=== PATIENT | female | born 1965 | race Caucasian/White ===

== ENCOUNTER → 2021-04-24 09:07 | Outpatient (BNVA) | payer OTHER, SELFPAY | PROVIDERS: PCP Internal Medicine; Visit Provider Surgery | DX: E66.9 Obesity, unspecified (principal); K91.2 Postsurgical malabsorption, not elsewhere classified; Z90.3 Acquired absence of stomach [part of]; Z68.32 Body mass index [BMI] 32.0-32.9, adult | CPT/HCPCS: 99202 ==

== ENCOUNTER 2021-07-10 11:57 | Outpatient (REF) | payer OTHER, SELFPAY ==
[2021-07-10 13:14] LABS: MANUAL DIFF FLAG NO
[2021-07-10 13:25] LABS: Basophils Percent Auto 0.3 % (0-2); Eosinophils Absolute Auto 0.2 X10*3/uL (0.0-0.4); Eosinophils Percent Auto 2.3 % (0-4); Hematocrit 41.2 % (37-47); Hemoglobin 13.8 g/dl (12.0-16.0); Imm Gran Abs Auto 0.03 X10*3/uL (0.00-0.03); Imm Gran Pct Auto 0.4 % (0.0-0.4); Lymphocytes Absolute Auto 1.8 X10*3/uL (1.2-4.9); Lymphocytes Percent Auto 24.4 % (20-40); Mean Corpuscular HGB Conc 33.5 g/dl (31.0-35.0); Mean Corpuscular Hemoglobin 29.5 pg (27.0-33.0); Mean Platelet Volume 8.8 fL (9.4-12.3); Monocytes Absolute Auto 0.5 X10*3/uL (0.1-1.2); Monocytes Percent Auto 6.3 % (2-11); Neutrophils Absolute Auto 4.9 X10*3/uL (2.0-8.3); Neutrophils Percent Auto 66.3 % (45-73); Platelet Count 185 X10*3/uL (160-400); Red Blood Count 4.68 X10*6/uL (4.20-5.50); Red Cell Distribution Width 12.6 % (11.0-16.0); White Blood Count 7.4 X10*3/uL (4.8-10.8)
[2021-07-10 13:52] LABS: Alanine Aminotransferase 17 U/L (0-31); Albumin Level 4.1 g/dL (3.5-5.0); Alkaline Phosphatase 114 U/L (39-117); Anion Gap 12 (12-20); Aspartate Amino Transferase 25 U/L (5-31); Bilirubin Total 1.6 mg/dL (0.0-1.0); Blood Urea Nitrogen 15 mg/dL (9-16); C Reactive Protein 0.51 mg/dL (< or = 0.50); Calcium 9.4 mg/dL (8.4-10.2); Carbon Dioxide 29 mmol/L (22-29); Chloride 104 mmol/L (96-108); Cholesterol 184 mg/dL; Estimated Glomerular Filt Rate > 60; Glucose Fasting 114 mg/dL (60-99); HDL Cholesterol 54 mg/dL; Iron 141 mcg/dL (30-160); LDL Cholesterol Calculated 119 mg/dl; Percent Iron Saturation 36 % (15-50); Potassium 4.1 mmol/L (3.3-5.1); Sodium 141 mmol/L (135-145); Total Iron Binding Capacity 387 mcg/dL (228-428); Total Protein 6.7 g/dL (6.5-8.0); Triglycerides 58 mg/dL; Unsaturated Iron Binding 246 ug/dL
[2021-07-10 14:09] LABS: Estimated Average Glucose 151 mg/dL; Hemoglobin A1c % 6.9 %
[2021-07-10 14:13] LABS: Thyroid Stimulating Hormone 0.87 uIU/mL (0.32-4.0)
[2021-07-10 14:18] LABS: Vitamin B12 256 pg/mL (200-900)
[2021-07-13 16:40] LABS: Zinc 66 mcg/dL (60-130)
[2021-07-14 00:51] LABS: Vitamin A 26 mcg/dL (38-98)
[2021-07-18 11:07] LABS: Vitamin B1 9 nmol/L (8-30)
== END 2021-07-10 11:58 | disposition home or self-care (01) ==
LOC: HO.LAB 11:57
PROVIDERS: Absent Provider Surgery; PCP Internal Medicine; Referring Provider Internal Medicine; Visit Provider Physician Assistant Surgical
DX: Z01.818 Encounter for other preprocedural examination (principal); E66.9 Obesity, unspecified; K91.2 Postsurgical malabsorption, not elsewhere classified; Z79.899 Other long term (current) drug therapy; Z90.3 Acquired absence of stomach [part of]; Z71.3 Dietary counseling and surveillance
CPT/HCPCS: 36415; 80053; 80061; 82306; 82607; 83036; 83540; 84425; 84443; 84590; 84630; 85025; 86140; 99212

== ENCOUNTER 2021-10-24 08:50 | Outpatient (REF) | payer OTHER, SELFPAY ==
[2021-10-24 12:33] LABS: Vitamin D 25-OH Total 22.4 ng/mL (>30)
[2021-10-24 23:32] LABS: Folate 11.8 ng/mL (> or = 4.0); Vitamin B12 380 pg/mL (200-900)
[2021-10-29 15:47] LABS: Vitamin A 30 mcg/dL (38-98)
[2021-10-30 11:52] LABS: Vitamin B1 14 nmol/L (8-30)
== END 2021-10-24 08:51 | disposition home or self-care (01) ==
LOC: HO.LAB 08:50
PROVIDERS: PCP Internal Medicine; Visit Provider Physician Assistant Surgical
DX: K91.2 Postsurgical malabsorption, not elsewhere classified (principal); E66.9 Obesity, unspecified; E50.9 Vitamin A deficiency, unspecified; Z90.3 Acquired absence of stomach [part of]; Z71.3 Dietary counseling and surveillance
CPT/HCPCS: 36415; 82306; 82607; 82746; 84425; 84590; 99212

== ENCOUNTER 2025-09-02 14:41 | Outpatient (REF) | payer OTHER, SELFPAY ==
--- NOTE | 2025-09-02 14:45 | EMG_ITS ---
Chief complaint: Right worse than left, chronic pain and numbness, 2nd-5th digits Reason for referral: Evaluate for ulnar neuropathy, Carpal Tunnel Syndrome or radiculopathy Referred by: Radha CORNEJO Procedure done: Bilateral upper extremities NCS/EMG Precautions and/or limitations: None The limb temperature was monitored continuously and remained between 32-36 degrees C during the performance of the NCS. Ulnar motor NCS was performed with moderate elbow flexion between 70-90 degrees, with across-elbow distance of 10 cm. Nerve Conduction Studies Anti Sensory Summary Table ?Stim Site NR Onset (ms) Norm Onset (ms) Peak (ms) Norm Peak (ms) O-P Amp (?V) Norm O-P Amp Site1 Site2 Delta-0 (ms) Dist (cm) Thad (m/s) Norm Thad (m/s) Left Median Anti Sensory (2nd Digit) Wrist ? 3.2 4.3 <3.6 34.2 >10 Wrist 2nd Digit 3.2 14.0 44 Right Median Anti Sensory (2nd Digit) Wrist ? 3.1 4.0 <3.6 35.8 >10 Wrist 2nd Digit 3.1 14.0 45 Right Radial Anti Sensory (Thumb) Forearm ? 2.0 2.7 <3.1 18.0 Forearm Thumb 2.0 0.0 Left Ulnar Anti Sensory (5th Digit) Wrist ? 2.8 3.8 <3.7 10.7 >15.0 Wrist 5th Digit 2.8 14.0 50 Right Ulnar Anti Sensory (5th Digit) Wrist ? 3.2 3.8 <3.7 5.4 >15.0 Wrist 5th Digit 3.2 14.0 44 Motor Summary Table ?Stim Site NR Onset (ms) Norm Onset (ms) O-P Amp (mV) Norm O-P Amp iAmp (mV) Amp (1st) (%) Site1 Site2 Delta-0 (ms) Dist (cm) Thad (m/s) Norm Thad (m/s) Left Median Motor (Abd Poll Brev) Wrist ? 4.2 <3.9 8.1 >4.5 11.5 100.0 Elbow Wrist 3.5 19.5 56 >45 Elbow ? 7.7 8.3 11.3 102.5 Right Median Motor (Abd Poll Brev) Wrist ? 3.9 <3.9 10.6 >4.5 12.5 100.0 Elbow Wrist 3.9 19.0 49 >45 Elbow ? 7.8 10.6 12.5 100.0 Left Ulnar Motor (Abd Dig Minimi) Wrist ? 3.4 <3.0 9.4 >5 12.2 100.0 B Elbow Wrist 3.8 18.0 47 >45 B Elbow ? 7.2 8.7 11.4 92.6 A Elbow B Elbow 1.8 10.0 56 >45 A Elbow ? 9.0 8.7 11.7 92.6 Right Ulnar Motor (Abd Dig Minimi) Wrist ? 3.4 <3.0 8.6 >5 11.7 100.0 B Elbow Wrist 3.7 17.0 46 >45 B Elbow ? 7.1 8.2 11.3 95.3 A Elbow B Elbow 2.6 10.0 38 >45 A Elbow ? 9.7 8.0 10.9 93.0 EMG ?Side Muscle Nerve Root Ins Act Fibs Psw Amp Dur Poly Recrt Int Pat Comment Right 1stDorInt Ulnar C8-T1 Incr 1+ 1+ Nml Nml 0 Nml Complete Right FlexCarpiUln Ulnar C8,T1 Incr 1+ 1+ Nml Nml 0 Nml Complete Right Biceps Musculocut C5-6 Nml Nml Nml Nml Nml 0 Nml Complete Right Triceps Radial C6-7-8 Nml Nml Nml Nml Nml 0 Nml Complete Right Deltoid Axillary C5-6 Nml Nml Nml Nml Nml 0 Nml Complete Left 1stDorInt Ulnar C8-T1 Incr Nml Nml Nml Nml 0 Nml Complete Left FlexCarpiUln Ulnar C8,T1 Nml Nml Nml Nml Nml 0 Nml Complete Left Biceps Musculocut C5-6 Nml Nml Nml Nml Nml 0 Nml Complete Left Triceps Radial C6-7-8 Nml Nml Nml Nml Nml 0 Nml Complete Left Deltoid Axillary C5-6 Nml Nml Nml Nml Nml 0 Nml Complete Paraspinal EMG ?Side Muscle Nerve Root Ins Act Fibs Psw Comment Right Cervical Upper Rami Nml Nml Nml Right Cervical Mid Rami Nml Nml Nml Right Cervical Lower Rami Nml Nml Nml Left Cervical Upper Rami Nml Nml Nml Left Cervical Mid Rami Nml Nml Nml Left Cervical Lower Rami Nml Nml Nml FINDINGS: Right ulnar motor nerve showed prolonged distal latency, normal amplitude and slow conduction velocity across the elbow. Left median motor nerve showed prolonged distal latency, normal amplitude and normal conduction velocity. Left ulnar motor nerve showed prolonged distal latency, normal amplitude and normal conduction velocity. Bilateral median sensory nerves showed prolonged peak latency. Bilateral ulnar sensory nerves showed small amplitude and prolonged peak latency. Right radial sensory nerve was within normal. Concentric needle EMG was performed in selected muscles of the upper extremity and cervical paraspinals. Study revealed signs of electric abnormalities as shown in the table above. Right FCU and FDI showed increased insertional activity, PSWs and fibrillations. Left FDI showed increased insertional activity. No denervation seen on cervical paraspinals. IMPRESSION: 1. This is an abnormal study. 2. There is electrodiagnostic evidence for bilateral ulnar neuropathy at the elbow. Right is worse, showing more acute/subacute denervation. Right is also much better localized than left. 3. There is electrodiagnostic evidence for left moderate-severe and right mild median neuropathy at the wrist, consistent with Carpal Tunnel Syndrome. 4. There is no electrodiagnostic evidence for brachial plexopathy or cervical radiculopathy. Thank you for your kind referral. Yanet Guerrero MD, SHERIF Board Certified, [employer] and [employer] (ABPMR) Board Certified, [place] [employer] Electro[employer]ostic [employer] (ABEM) CODIN [phone] x 2 extremities MTDD
--- OUTSIDE RECORDS SUMMARY | 2025-09-02 16:05 | XMS_ITS ---
Author Name [facility] Organization Unknown Care Team Organization Name Specialty Phone Email Start Date End Da te [facility] 07/23/2022
--- OUTSIDE RECORDS SUMMARY | 2025-09-02 16:05 | XMS_ITS | Clinical Summary ---
Author Organization [facility] Address [address] [place] [address] Phone Care Team Providers Care Thermostat Maker Name Role Phone Austin Marcano MD Primary Care Provider [phone] Allergies No known active allergies Medications simvastatin (ZOCOR) 40 mg tablet Take 1 tablet (40 mg total) by mouth at bedtime. 12/17/19 24 Active buPROPion XL (WELLBUTRIN XL) 150 mg 24 hr tablet Take 1 Tablet by mouth every morning for 30 days. 07/24/20 23 Active citalopram (CeleXA) 20 mg tablet Take 1 tablet (20 mg total) by mouth 1 (one) time each day. 03/11/20 20 Active zolpidem (AMBIEN) 10 mg tablet Take 1 Tab by mouth at bedtime as needed. 01/19/20 19 Active albuterol 2.5 mg /3 mL (0.083 %) nebulizer solution Take 3 mL (2.5 mg total) by nebulization every 6 (six) hours if needed for wheezing. 360 mL 5 09/24/19 25 026 Active albuterol HFA (PROAIR HFA ; PROVENTIL HFA ; VENTOLIN HFA) 90 mcg/actuation inhaler Inhale 2 puffs by mouth every 6 (six) hours if needed for wheezing. 6.7 g 11 09/25/19 25 01/11/2 026 Active fluticasone propionate (FLONASE) 50 mcg/actuation nasal spray TWO SPRAYS PER NOSTRIL ONCE DAILY 32 mL 1 10/19/19 25 Active ammonium lactate (AmLactin) 12 % lotion Apply topically if needed for dry skin. 400 g 2 10/20/19 25 026 Active cholecalcifero l (VITAMIN D-3) 125 mcg (5,000 unit) capsule Take 1 capsule (5,000 Units total) by mouth 1 (one) time each day. 90 capsule 1 10/25/19 25 Active fluticasone-sa lmeterol (Advair Diskus) 250-50 mcg/dose diskus inhaler Inhale 1 puff by mouth 2 (two) times a day. Rinse mouth with water after use to reduce aftertaste and incidence of candidiasis. Do not swallow. 1 each 12 03/31/20 25 026 Active Dexcom G7 Sensor deviceIndicati ons:Type 2 diabetes mellitus with diabetic neuropathy, unspecified (CMS/[facility] V24, CMS/[facility] V28) CHANGE SENSOR EVERY 10 DAYS 9 each 3 05/10/20 25 Active blood sugar diagnostic (FreeStyle Lite Strips) test stripIndicatio ns:Type 2 diabetes mellitus with diabetic neuropathy, unspecified (CMS/[facility] V24, CMS/[facility] V28) TEST BLOOD SUGAR ONCE A DAY 100 strip 5 05/17/20 25 Active lisinopril (PRINIVIL,ZEST RIL) 40 mg tablet Take 1 tablet (40 mg total) by mouth 1 (one) time each day. 90 tablet 1 05/23/20 25 Active tirzepatide (Mounjaro) 5 mg/0.5 mL injectionIndic ations:Type 2 diabetes mellitus with diabetic polyneuropathy , without long-term current use of insulin (CMS/[facility] V24, CMS/[facility] V28) Inject 0.5 mL (5 mg total) under the skin every 7 (seven) days. 2 mL 11 07/12/20 25 Active hydroCHLOROthi azide (HYDRODIURIL) 25 mg tablet TAKE 1 TABLET BY MOUTH 1 TIME EACH DAY. 90 tablet 1 08/22/20 25 Active hydroCHLOROthi azide (HYDRODIURIL) 25 mg tablet Take 1 tablet (25 mg total) by mouth 1 (one) time each day. 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 02/02 Intertrigo 01/12/2025 Abdominal pannus 01/12/2025 History of sleeve gastrectomy 10/25/2024 Hyperlipidemia 11/07/2021 Peripheral neuropathy 05/01/2021 Severe obesity (BMI 35.0-39.9) with comorbidity 09/02/2019 Patellofemoral arthritis 08/27/2018 Overview (06/15/2024): Seen on MRI 2018 Spondylosis of lumbar region without myelopathy or radiculopathy 08/27/2018 Asthma, moderate persistent 08/18/2018 Seasonal allergic rhinitis 05/06/2018 Carpal tunnel syndrome on right 12/01/2014 Overview (06/15/2024): 2014 EMG: mild on right Bipolar 1 disorder 01/15/2013 Overview (06/15/2024): Patient has psychiatric provider Fatty liver 01/15/2013 HTN (hypertension) 01/15/2013 Type 2 diabetes mellitus with neurologic complic ation 01/15/2013 Overview (10/18/2024): Periph neuropathy Glaucoma Encounters Date Type Department Care Team Description 07/20/2025 Telephone Orthopedic Surgery - [place] [address] [place] [phone] Jesus Newton MA 07/13/2025 3:00 PM EDT Office Visit Adult Medicine [address] [phone] Franky Marino PA Hearing loss of left ear, unspecified hearing loss type (Primary Dx); Type 2 diabetes mellitus with diabetic polyneuropathy, without long-term current use of insulin (CMS/HCC V24, CMS/HCC V28) 07/13/2025 Telephone Adult Medicine [address] [phone] Austin Marcano MD 07/12/2025 9:45 AM EDT Office Visit Endocrinology [address] [phone] Michell Larry PA Type 2 diabetes mellitus with diabetic polyneuropathy, without long-term current use of insulin (CMS/HCC V24, CMS/HCC V28) (Primary Dx); Primary hypertension; Hyperlipidemia, unspecified hyperlipidemia type 06/30/2025 10:30 AM EDT Office Visit Plastic & Reconstructive Surgery [facility] [address] [facility] [address] [place] [address] Irene Levin PA S/P panniculectomy (Primary Dx) 06/30/2025 9:00 AM EDT Office Visit Orthopedic Surgery [facility] [address] [phone] Radha Velazquez PA Bilateral carpal tunnel syndrome (Primary Dx) 06/20/2025 11:30 AM EDT Office Visit Plastic & Reconstructive Surgery [facility] [address] [phone] Luis Fernando Bustillo PA S/P panniculectomy (Primary Dx) 06/17/2025 Telephone Plastic & Reconstructive Surgery [facility] [address] [phone] Luis Fernando Bustillo PA 06/14/2025 11:02 AM EDT - 06/15/2025 3:00 PM EDT Hospital [facility] [address] [place] [phone] Miryam Rasmussen MD Pryor, Brian Alan, Seroma of skin or subcutaneous tissue after dermatologic procedure (Primary Dx); Lower abdominal pain Discharge Disposition: Home or Self Care 06/14/2025 9:30 AM EDT Office Visit Plastic & Reconstructive [facility] [address] [phone] Luis Fernando Bustillo PA S/P panniculectomy (Primary Dx) 06/07/2025 9:00 AM EDT Office Visit Plastic & Reconstructive Surgery - [place] [address] [place] [address] Irene Levin PA S/P panniculectomy (Primary Dx) from Last 3 Months Immunizations Immunization Administration Dates Next Due Influenza Quadravalent, MDCK , 0.5ml, preservative free (Flucelvax) 6mo and older 05/27/2023,07/15/2022,09/02/2019 Influenza Quadravalent, MDCK , 0.5ml, with preservative (Flucelvax) 6mo and older 07/02/2018 Influenza trivalent, 0.5mL, preservative free (Fluarix; FluLaval; Fluzone) ages 6mo and older (Afluria) 3 years and older 08/07/2024 Influenza trivalent, recombi nant, 0.5mL, preservative free (Flublok) 9yo and older 06/26/2025 Influenza trivalent, with pr eservative (Fluzone; Afluria) 6mo and older 08/22/2021,06/03/2020,10/25/2017,07/25,05/15/2013 Moderna (age 6mo & older) Bi valent, COVID-19, 0.5 mL or 0.25 mL dosage 09/03/2022 Pneumococcal polysaccharide 23 valent (Pneumovax 23) 2yo and older 03/22/2014 Tdap Tetanus diptheria acell ular pertussis (Boostrix; Adacel) 7yo and older 05/13/2024,08/04/2013 Zoster recombinant (Shingrix ) 19yo and older 03/30/2023,05/23/2022 Surgical History Surgery Date Site/Laterality Comments HYSTERECTOMY 05/26/2001 menorrhagia COLONOSCOPY 04/14/15 Diverticulosis, repeat in 5 years BREAST BIOPSY : rt side neg CHOLECYSTECTOMY 01/24/2017 BARIATRIC SURGERY 06/12/2017 sleeve gastrectomy Medical History Medical History Date Comments HTN (hypertension) 01/15/2013 Gallstones 08/31/2013 Fatty liver 01/15/2013 DX:Fatty liver Type 2 diabetes mellitus wit h neurologic complication (CMS/HCC V24, CMS/HCC V28) 01/15/2013 Chronic back pain 01/15/2013 Carpal tunnel syndrome on right 12/01/2014 Bipolar 1 disorder ([facility] V24, [facility] V28) 01/15/2013 Patient has psychiatric prov ider Asthma Glaucoma Patellofemoral arthritis 08/27/2018 Spondylosis of lumbar region without myelopathy or radiculopathy 08/27/2018 Peripheral neuropathy 05/01/2021 History of sleeve gastrectomy 10/25/2024 PONV (postoperative nausea and vomiting) Family History Medical History Relation Name Comments Stomach cancer Aunt Diabetes Brother Diabetes Father Colon cancer Father's side cousin No Known Problems Maternal Grandfather No Known Problems Maternal Grandmother Diabetes Mother depression, gla ucoma No Known Problems Paternal Grandfather No Known Problems Paternal Grandmother Ovarian cancer Neg Hx Relation Name Status Comments Aunt Brother Alive Father Father's side Maternal Grandfather Maternal Grandmother Mother Alive Paternal Grandfather Paternal Grandmother Social History Tobacco Use Types Packs/Day Years Used Date Smoking Tobacco: Never Smokeless Tobacco: Never Tobacco Cessation:Counseling Given: Not Answered Alcohol Use Standard Drinks/Week Comments No 0 (1 standard drink = 0.6 oz pur e alcohol) Dependent Care Answer Date Recorded Do you need help finding or paying for care for your loved ones. For example, children's court magistrate or elderly care for an older adult? No 09/23/2024 Education Answer Date Recorded Do you think completing more education or training, like finishing a GED, going to college, or learning a trade, would be helpful for you? No 09/23/2024 Employment and Income Answer Date Recor ded During the last four weeks, have you been actively looking for work? No 09/23/2024 Interpersonal Safety Answer Date Record ed Physical Abuse Unrecognized value 06/14/2025 Verbal Abuse Unrecognized value 06/14/2025 Comments No Sex and Gender Information Value Date Recorded Sex Assigned at Not on file Legal Sex Female 7:33 PM EST Gender Identity Not on file Sexual Orientation Not on file Last Filed Vital Signs Vital Sign Reading Time Taken Comments Blood Pressure 137/74 07/13/2025 2:47 PM EDT Pulse 68 07/13/2025 2:47 PM EDT Temperature 35.8 C (96.4 F) 07/13/2025 2:47 PM EDT Respiratory Rate 14 07/13/2025 2:47 PM EDT Oxygen Saturation 99% 07/13/2025 2:47 PM EDT Inhaled Oxygen Concentration - - Weight 71.2 kg (157 lb) 07/13/2025 2:47 PM EDT Height 160 cm (5' 3 ) 07/13/2025 2:47 PM EDT Body Mass Index 27.81 07/13/2025 2:47 PM EDT Plan of Treatment Upcoming Encounters Date Type Department Care Team (Late st Contact Info) Description 11/21/2025 1:00 PM EDT Office Visit Adult Medicine [address] [phone] Austin Marcano MD [address] [place], [place] 01/05/2026 10:15 AM EDT Office Visit Bariatric Surgery [address] [place] [phone] Prasad Baird MD [address] [place] [address] 02/17/2026 9:30 AM EDT Office Visit Endocrinology [address] [phone] Michell Larry PA [address] [place] [address] Health Maintenance Due Date Last Done Comments Drug Screen 1965 Non-Opioid Controlled Substance Agreement 1967 Hepatitis B Vaccines (1 of 3 - 19+ 3-dose series) 1986 Pneumococcal Vaccine: 50+ Years (2 of 2 - PCV) 03/22/2015 03/22/2014 RSV Immunization Adult Patients (1 - Risk 50-74 years 1-dose series) 2017 HIV Screening 08/24/2022 Colorectal Cancer Screening: Colonoscopy 04/14/2025 04/14/2015 COVID-19 Vaccine ( season) 2025 09/03/2022, 08/15/2021, 12/22/2020 Social Influencers of Health Screening 09/23/2025 09/23/2024 Diabetes: Annual Urine Albumin-Creatinine Ratio (uACR) 10/25/2025 10/25/2024, 12/17/2023 Diabetes: Blood Sugar Control Test (HGBA1C) 11/20/2025 05/23/2025, 10/25/2024, 05/13/2024, Additional history exists Diabetes: Annual Retina Eye Exam 12/14/2025 12/14/2024, 05/21/2024 Diabetes: Annual Foot Exam 05/23/2026 05/23/2025, Breast Cancer Screening 06/10/2026 06/10/20 24, 06/10/2024, 11/18/2022, Additional history exists Diabetes: Annual GFR (Glomerular Filtration Rate) 06/14/2026 06/14/2025, 05/23/2025, 10/28/2024, Additional history exists Hypertension/CHF/CAD Annual BMP Blood Test 06/14/2026 06/14/2025, 05/23/2025, 10/28/2024, Additional history exists Cholesterol Screening (Lipid Panel) 10/25/2029 10/25/2024, 05/13/2024, 05/13/2024 DTaP,Tdap,and Td Vaccines (3 - Td or Tdap) 05/13/2034 05/13/2024, 08/04/2013 Hepatitis C Screening Completed 12/25/2016 Zoster Vaccines Completed 03/30/2023, 05/23/2022 Depression Screening Completed 09/23/2024, 07/24/20 Influenza Vaccine Completed 06/26/2025, , 05/27/2023, Additional history exists HIB Vaccines Aged Out No longer eligi ble based on patient's age to complete this topic HPV Vaccines Aged Out No longer eligi ble based on patient's age to complete this topic Hepatitis A Vaccines Aged Out No long er eligible based on patient's age to complete this topic IPV Vaccines Aged Out No longer eligi ble based on patient's age to complete this topic MMR Vaccines Aged Out No longer eligi ble based on patient's age to complete this topic Meningococcal ACWY Vaccine Aged Out N o longer eligible based on patient's age to complete this topic Meningococcal B Vaccine Aged Out No l onger eligible based on patient's age to complete this topic RSV Immunization Patients Under 20 months Aged Out No longer eligible based on patient's age to complete this topic Varicella Vaccines Aged Out No longer eligible based on patient's age to complete this topic Procedures Procedure Name Priority Date/Time Associated Diagnosis Comments CULTURE ABSCESS WITH GRAM STAIN Routine 06/15/2025 1:38 PM EDT CULTURE ABSCESS WITH GRAM STAIN STAT 06/15/2025 1:38 PM EDT US GUIDED PERC DRAIN PLCMNT Routine 06/15/2025 1:[address] ABDOMEN PELVIS W CONTRAST STAT 06/14/2025 1:56 PM EDT CBC WITH AUTO DIFFERENTIAL STAT 06/14/2025 11:36 AM EDT LIPASE STAT 06/14/2025 11:36 AM EDT COMPREHENSIVE METABOLIC PANEL STAT 06/14/2025 11:36 AM EDT CBC AND DIFFERENTIAL STAT 06/14/2025 11:36 AM EDT HEMOGLOBIN A1C Routine 05/23/2025 10:38 AM EDT Type 2 diabetes mellitus with diabetic polyneuropathy, without long-term current use of insulin ([facility]/HCC V24, [facility] V28) MICROALBUMIN CREATININE URINE RATIO Routine 10/25/2024 10:25 AM EST Type 2 diabetes mellitus with diabetic neuropathy, with long-term current use of insulin (CMS/HCC V24, [facility] V28) LIPID PANEL WITH REFLEX TO DIRECT LDL Routine 10/25/2024 10:25 AM EST Type 2 diabetes mellitus with diabetic neuropathy, with long-term current use of insulin ([facility] V24, [facility] V28) TELMA SCREENING DIGITAL Routine 06/10/2024 4:22 PM EDT Encounter for screening mammogram for malignant neoplasm of breast DIABETES EYE EXAM Routine 05/21/2024 DIABETES FOOT EXAM Routine 05/04/2024 DEPRESSION SCREENING Routine 07/24/2023 HEPATITIS C SCREENING Routine 12/25/2016 COLONOSCOPY Routine 04/14/2015 from Last 3 Months or Most Recently Relevant to Health Maintenance Results * (ABNORMAL) Culture abscess with gram stain (06/15/2025 1:38 PM EDT) Only the most recent of2 resultswithin the time period is included. CULTURE, ABSCESS Few Enterobacter cloacae complex(A) CANDI 06/18/2025 10:54 AM EDT [facility] Comment: The organism value for this result has been updated. These results have been appended to the previously preliminary verified report. This is an edited result. Previous organism was Gram negative bacilli on 06/16/2025 at 1211 EDT. Gram Stain Result Moderate Polymorphonuclear leukocytes 06/18/2025 10:54 AM EDT [facility] Gram Stain Result No epithelial cells seen 06/18/2025 10:54 AM EDT [facility] Gram Stain Result No organisms seen 06/18/2025 10:54 AM EDT [facility] Aspirate Structure of abdominopelvic wall / Unknown Non-blood Collection / Unknown 06/15/2025 1:38 PM EDT 06/15/2025 1:41 PM EDT Narrative Organism Antibiotic Method Susceptibility Enterobacter cloacae complex Amoxicillin/Clavulanate CANDI >=32 ug/ml: Resistant Enterobacter cloacae complex Cefoxitin CANDI >=64 ug/ml: Resistant Enterobacter cloacae complex Ceftazidime CANDI <=0.5 ug/ml: Susceptible Enterobacter cloacae complex Cefepime CANDI <=0.12 ug/ml: Susceptible Enterobacter cloacae complex Meropenem CANDI <=0.25 ug/ml: Susceptible Enterobacter cloacae complex Amikacin CANDI 2 ug/ml: Susceptible Enterobacter cloacae complex Gentamicin CANDI <=1 ug/ml: Susceptible Enterobacter cloacae complex Ciprofloxacin CANDI <=0.06 ug/ml: Susceptible Enterobacter cloacae complex Levofloxacin CANDI <=0.12 ug/ml: Susceptible Enterobacter cloacae complex Trimethoprim/Sulfamethoxaz ole CANDI <=20 ug/ml: Susceptible us [facility] MICROBIOLOGY - GENERAL ORDER JEAN Final Result [facility] [place] [address] [place] [address], * US Guided Perc Drain Plcmnt (06/15/2025 1:36 PM EDT) Anatomical Region Laterality Modality Ultrasound 06/15/2025 2:09 PM EDT Narrative 06/15/2025 3:23 PM EDT INDICATION: Anterior abdominal wall collection status post panniculectomy, request for drain placement per Plastic Surgery TECHNIQUE: Written informed consent obtained. Patient placed supine on the ultrasound stretcher. Multiple images obtained of the anterior abdomen. After review of the images, the larger midline collection and the smaller, right superiorly located collection were identified. These areas of skin were localized under real-time ultrasound. These regions were draped and prepped in the usual sterile fashion. 2% buffered lidocaine was used as a local anesthetic. Under real-time ultrasound guidance, the small collection was first accessed utilizing a 5 Nepalese centesis catheter attached to 20 cc syringe for manual aspiration. 20 cc of clear red fluid was aspirated. Next, the large collection was accessed using trocar technique of 8 Nepalese pigtail catheter under live ultrasound guidance. Approximately 50 cc of clear red drainage was aspirated before securing the pigtail to the skin with a single 2-0 Ethilon suture and StatLock. Catheter attached to according drain. A clean dressing was applied. The patient tolerated the procedures well and left the department in stable condition without immediate complications. Samples from both collections were sent to the lab for testing. FINDINGS: Direct comparison made to study from CT abdomen and pelvis June 14, 2020 CONCLUSION: Ultrasound-guided aspiration and 8F drain placement of abdominal wall collections as described above. -------- FINAL REPORT -------- Dictated By: Addie Hernandez Dictated Date: 06/15/2025 14:09 ET Assigned Physician: Dakota Figueroa Reviewed and Electronically Signed By: Dakota Figueroa Signed Date: 06/15/2025 15:23 ET Workstation ID: [id number] Transcribed By: Self Edit Transcribed Date: 06/15/2025 14:16 ET Resident/PA/DYED YARN OPERATOR: Addie Hernandez Procedure Note Dakota Figueroa MD - 06/15/2025 INDICATION: Anterior abdominal wall collection status post panniculectomy,request for drain placement per Plastic Surgery TECHNIQUE: Written informed consent obtained. Patient placed supine on theultrasound stretcher. Multiple images obtained of the anterior abdomen.After review of the images, the larger midline collection and the smaller,right superiorly located collection were identified. These areas of skinwere localized under real-time ultrasound. These regions were draped andprepped in the usual sterile fashion. 2% buffered lidocaine was used as alocal anesthetic. Under real-time ultrasound guidance, the smallcollection was first accessed utilizing a 5 Nepalese centesis catheterattached to 20 cc syringe for manual aspiration. 20 cc of clear red fluidwas aspirated. Next, the large collection was accessed using trocartechnique of 8 Nepalese pigtail catheter under live ultrasound guidance.Approximately 50 cc of clear red drainage was aspirated before securingthe pigtail to the skin with a single 2-0 Ethilon suture and StatLock.Catheter attached to according drain. A clean dressing was applied. The patient tolerated the procedures well and left the department instable condition without immediate complications. Samples from bothcollections were sent to the lab for testing. FINDINGS: Direct comparison made to study from CT abdomen and pelvisSept2019 CONCLUSION: Ultrasound-guided aspiration and 8F drain placement of abdominal wallcollections as described above. -------- FINAL REPORT -------- Dictated By: Addie Hernandez Dictated Date: 06/15/2025 14:09 ET Assigned Physician: Dakota Figueroa Reviewed and Electronically Signed By: Dakota Figueroa Signed Date: 06/15/2025 15:23 ET Workstation ID: [id number] Transcribed By: Self Edit Transcribed Date: 06/15/2025 14:16 ET Resident/PA/DYED YARN OPERATOR: Addie Hernandez us [facility] US PROCEDURES Final Result * CT Abdomen Pelvis w Contrast (06/14/2025 1:56 PM EDT) Anatomical Region Laterality Modality Body Computed Tomogra phy 06/14/2025 2:05 PM EDT Impressions 06/14/2025 2:10 PM EDT Large partially enhancing collection in the anterior pelvic subcutaneous soft tissues with smaller adjacent collection. Findings are concerning for developing abscess. -------- FINAL REPORT -------- Dictated By: Dustin De Paz Dictated Date: 06/14/2025 14:05 ET Assigned Physician: Dustin De Paz Reviewed and Electronically Signed By: Dustin De Paz Signed Date: 06/14/2025 14:10 ET Workstation ID: [id number] Transcribed By: Self Edit Transcribed Date: 06/14/2025 14:05 ET Narrative 06/14/2025 2:10 PM EDT PROCEDURE: CT ABDOMEN/PELVIS WITH CONTRAST INDICATION: seroma vs abscess in lower abdomen, s/p panniculectomy TECHNIQUE: CT of the abdomen and pelvis following the intravenous administration of 90cc Isovue 370. Multiplanar reformats. The examination was performed utilizing dose reduction techniques. Total DLP 920 COMPARISON: 08/16/2017 FINDINGS: LOWER THORAX: Lung bases are clear.Small hiatal hernia. HEPATOBILIARY: No focal liver lesions. Mild common bile duct prominence in setting of prior cholecystectomy. SPLEEN: No focal lesion. PANCREAS: No focal mass or ductal dilatation. Duodenum diverticulum at the pancreatic head. ADRENALS: No nodules. KIDNEYS/URETERS: No hydronephrosis, stones, or solid mass. PELVIC ORGANS/BLADDER: Hysterectomy. PERITONEUM / RETROPERITONEUM: No ascites or free air. No retroperitoneal lymphadenopathy. Few lymph nodes in the right lower quadrant are presumably reactive. VESSELS: Scattered atherosclerotic calcifications throughout the aorta and its major branches. No aneurysm. GI TRACT: No bowel distention or wall thickening. Normal appendix. Small hiatal hernia with sleeve gastrectomy. BONES AND SOFT TISSUES: Scattered degenerative changes seen throughout the bones. Mild soft tissue edema. There is a large partially enhancing collection measuring 22 x 5.8 x 8.9 m in the anterior pelvic subcutaneous soft tissues. There is a smaller collection just superior to this on the right measuring 5.4 x 1.9 cm. Procedure Note Dustin De Paz MD - 06/14/2025 PROCEDURE: CT ABDOMEN/PELVIS WITH CONTRAST INDICATION: seroma vs abscess in lower abdomen, s/p panniculectomy TECHNIQUE: CT of the abdomen and pelvis following the intravenousadministration of 90cc Isovue 370. Multiplanar reformats. The examinationwas performed utilizing dose reduction techniques. Total DLP 920 COMPARISON: 08/16/2017 FINDINGS: LOWER THORAX: Lung bases are clear.Small hiatal hernia. HEPATOBILIARY: No focal liver lesions. Mild common bile duct prominence insetting of prior cholecystectomy. SPLEEN: No focal lesion. PANCREAS: No focal mass or ductal dilatation. Duodenum diverticulum atthe pancreatic head. ADRENALS: No nodules. KIDNEYS/URETERS: No hydronephrosis, stones, or solid mass. PELVIC ORGANS/BLADDER: Hysterectomy. PERITONEUM / RETROPERITONEUM: No ascites or free air. No retroperitoneallymphadenopathy. Few lymph nodes in the right lower quadrant arepresumably reactive. VESSELS: Scattered atherosclerotic calcifications throughout the aorta andits major branches. No aneurysm. GI TRACT: No bowel distention or wall thickening. Normal appendix. Smallhiatal hernia with sleeve gastrectomy. BONES AND SOFT TISSUES: Scattered degenerative changes seen throughout thebones. Mild soft tissue edema. There is a large partially enhancingcollection measuring 22 x 5.8 x 8.9 m in the anterior pelvic subcutaneoussoft tissues. There is a smaller collection just superior to this on theright measuring 5.4 x 1.9 cm. IMPRESSION: Large partially enhancing collection in the anterior pelvic subcutaneoussoft tissues with smaller adjacent collection. Findings are concerningfor developing abscess. -------- FINAL REPORT -------- Dictated By: Dustin De Paz Dictated Date: 06/14/2025 14:05 ET Assigned Physician: Dustin De Paz Reviewed and Electronically Signed By: Dustin De Paz Signed Date: 06/14/2025 14:10 ET Workstation ID: [id number] Transcribed By: Self Edit Transcribed Date: 06/14/2025 14:05 ET us Miryam Rasmussen MD IM CT PROCEDURES Final Result * (ABNORMAL) CBC auto differential (06/14/2025 11:36 AM EDT) [facility] WBC 7.5 4.8 - 10.8 K/mcL LAB HEMETOLOGY METHOD 06/14/2025 12:54 PM EDT [facility] RBC 3.90 3.80 - 4.80 M/mcL LAB HEMETOLOGY METHOD 06/14/2025 12:54 PM EDT [facility] Hemoglobin 11.2(L) 11.5 - 16.0 g/dL LAB HEMETOLOGY METHOD 06/14/2025 12:54 PM EDT [facility] Hematocrit 35.3 35.0 - 47.0 % LAB HEMETOLOGY METHOD 06/14/2025 12:54 PM EDT [facility] MCV 91.0 79.0 - 98.0 FL LAB HEMETOLOGY METHOD 06/14/2025 12:54 PM EDT [facility] MCH 28.9 27.0 - 32.0 pcg LAB HEMETOLOGY METHOD 06/14/2025 12:54 PM EDT [facility] MCHC 31.7(L) 32.0 - 37.0 g/dL LAB HEMETOLOGY METHOD 06/14/2025 12:54 PM EDT [facility] RDW 12.7 11.0 - 15.0 % LAB HEMETOLOGY METHOD 06/14/2025 12:54 PM EDT [facility] Platelets 209 130 - 400 K/mcL LAB HEMETOLOGY METHOD 06/14/2025 12:54 PM EDT [facility] MPV 8.9 7.0 - 11.0 FL LAB HEMETOLOGY METHOD 06/14/2025 12:54 PM EDT [facility] NRBC 0.0 <1.0 % [facility] NRBC Absolute 0.00 <0.10 K/mcL LAB HEMETOLOGY METHOD 06/14/2025 12:54 PM [facility] Neutrophils Relative 74.0 % LAB HEMETOLOGY METHOD 06/14/2025 12:54 PM [facility] Lymphocytes Relative 15.3 % LAB HEMETOLOGY METHOD 06/14/2025 12:54 PM EDT [facility] Monocytes Relative 9.2 % LAB HEMETOLOGY METHOD 06/14/2025 12:54 PM [facility] Eosinophils Relative 0.8 % LAB HEMETOLOGY METHOD 06/14/2025 12:54 PM [facility] Basophils Relative 0.3 % LAB HEMETOLOGY METHOD 06/14/2025 12:54 PM [facility] Immature Granulocytes Relative 0.4 % LAB HEMETOLOGY METHOD 06/14/2025 12:54 PM [facility] Neutrophils Absolute 5.57 1.50 - 7.00 K/mcL LAB HEMETOLOGY METHOD 06/14/2025 12:54 PM [facility] Lymphocytes Absolute 1.15 1.00 - 5.00 K/mcL LAB HEMETOLOGY METHOD [facility] Monocytes Absolute 0.69 0.20 - 1.00 K/mcL LAB HEMETOLOGY METHOD 06/14/2025 12:54 PM [facility] Eosinophils Absolute 0.06 0.00 - 0.50 K/mcL LAB HEMETOLOGY METHOD [facility] Basophils Absolute 0.02 0.00 - 0.20 K/mcL LAB HEMETOLOGY METHOD 06/14/2025 12:54 PM EDT [facility] Immature Granulocytes Absolute 0.03 0.00 - 0.03 K/[facility] LAB HEMETOLOGY METHOD 06/14/2025 12:54 PM EDT [facility] Blood Venous blood specimen / Unknown Venipuncture / Unknown 06/14/2025 11:36 AM EDT 06/14/2025 12:45 PM EDT us Amirah Contreras MD LAB BLOOD ORDERABLES Final Result Performing Organization Address City/[facility]/ZIP Co de Phone Number [facility] [address] [place] [address], [place] [phone] * Lipase (06/14/2025 11:36 AM EDT) Lipase 33 13 - 75 unit/L LAB CHEMISTRY METHOD 06/14/2025 1:33 PM EDT [facility] Blood Venous blood specimen / Unknown Venipuncture / Unknown 06/14/2025 11:36 AM EDT 06/14/2025 12:45 PM EDT us Amirah Contreras MD LAB BLOOD ORDERABLES Final Result Performing Organization Address City/[facility]/ZIP Co de Phone Number [facility] [address] [place] [address], [place] [phone] * (ABNORMAL) Comprehensive metabolic panel (06/14/2025 11:36 AM EDT) Sodium 140 133 - 145 mmol/L LAB CHEMISTRY METHOD 06/14/2025 1:33 PM EDT [facility] Potassium 3.3(L) 3.5 - 5.5 mmol/L LAB CHEMISTRY METHOD 06/14/2025 1:33 PM EDT [facility] Chloride 104 96 - 110 mmol/L LAB CHEMISTRY METHOD 06/14/2025 1:33 PM [facility] CO2 29 21 - 32 mmol/L LAB CHEMISTRY METHOD 06/14/2025 1:33 PM [facility] Anion Gap 7 3 - 11 LAB CHEMISTRY METHOD 06/14/2025 1:33 PM [facility] Glucose 93 70 - 100 mg/dL LAB CHEMISTRY METHOD 06/14/2025 1:33 PM [facility] BUN 11 5 - 25 mg/dL LAB CHEMISTRY METHOD 06/14/2025 1:33 PM [facility] Creatinine 0.55 0.50 - 1.10 mg/dL LAB CHEMISTRY METHOD 06/14/2025 1:33 PM [facility] eGFR 107 >=60 mL/min/1. 73m2 LAB CHEMISTRY METHOD 06/14/2025 1:33 PM [facility] Comment:Calculation based on the Chronic Kidney Disease Epidemiology Collaboration (CKD-EPI) equation refit without adjustment for race. BUN/Creatinine Ratio 20.0 LAB CHEMISTRY METHOD 06/14/2025 1:33 PM [facility] Calcium 8.5 8.5 - 10.5 mg/dL LAB CHEMISTRY METHOD 06/14/2025 1:33 PM [facility] AST (SGOT) 23 10 - 42 unit/L LAB CHEMISTRY METHOD 06/14/2025 1:33 PM [facility] ALT (SGPT) 17 10 - 60 unit/L LAB CHEMISTRY METHOD 06/14/2025 1:33 PM [facility] Alkaline Phosphatase 105 42 - 121 unit/L LAB CHEMISTRY METHOD 06/14/2025 1:33 PM [facility] Total Protein 5.9(L) 6.0 - 8.0 g/dL LAB CHEMISTRY METHOD 06/14/2025 1:33 PM [facility] Albumin 2.8(L) 3.2 - 5.0 g/dL LAB CHEMISTRY METHOD 06/14/2025 1:33 PM EDT [facility] Total Bilirubin 1.1 0.0 - 1.4 mg/dL LAB CHEMISTRY METHOD 06/14/2025 1:33 PM EDT [facility] Blood Venous blood specimen / Unknown Venipuncture / Unknown 06/14/2025 11:36 AM EDT 06/14/2025 12:45 PM EDT Amirah Contreras MD LAB BLOOD ORDERABLES Final Result Performing Organization Address City/[facility]/ZIP Co de Phone Number [facility] [address] [place] [address], [place] [phone] * Hemoglobin A1c (05/23/2025 10:38 AM EDT) Hemoglobin A1C 5.2 <6.5 % LAB CHEMISTRY METHOD 05/24/2025 8:35 AM EDT [facility] Mean Bld Glu Estim. 103 mg/dL LAB CHEMISTRY METHOD 05/24/2025 8:35 AM EDT [facility] Blood Venous blood specimen / Unknown Venipuncture / Unknown 05/23/2025 10:38 AM EDT 05/23/2025 10:38 AM EDT Sultana CORNEJO LAB BLOOD ORDERABLES Final Resul t [facility] [address] [place] [address], [place] [phone] * Lipid panel with reflex to direct LDL (10/25/2024 10:25 AM EST) Cholesterol 164 0 - 200 mg/dL LAB CHEMISTRY METHOD 10/25/2024 1:02 PM EST [facility] Triglycerides 79 0 - 150 mg/dL LAB CHEMISTRY METHOD 10/25/2024 1:02 PM EST [facility] HDL 61 >=40 mg/dL LAB CHEMISTRY METHOD 10/25/2024 1:02 PM [facility] LDL Calculated 87 0 - 100 mg/dL LAB CHEMISTRY METHOD 10/25/2024 1:02 PM [facility] VLDL Cholesterol Javier 15.8 mg/dL LAB CHEMISTRY METHOD 10/25/2024 1:02 PM [facility] Non HDL Chol. (LDL+VLDL) 103 <145 mg/dL LAB CHEMISTRY METHOD 10/25/2024 1:02 PM [facility] Chol/HDL Ratio 2.7 0.0 - 4.4 LAB CHEMISTRY METHOD 10/25/2024 1:02 PM [facility] Blood Venous blood specimen / Unknown Venipuncture / Unknown 10/25/2024 10:25 AM EST 10/25/2024 10:25 AM EST us Michell CORNEJO LAB BLOOD ORDERABLES Final Result [facility] [address] [place] [address], [place] [phone] * Microalbumin creatinine urine ratio (10/25/2024 10:25 AM EST) Creatinine, Urine 270.0 mg/dL LAB CHEMISTRY METHOD 10/25/2024 1:11 PM [facility] Microalb, Ur 18.3 0.0 - 29.0 mg/L LAB CHEMISTRY METHOD 10/25/2024 1:11 PM [facility] Microalb/Creat Ratio 7 <30 mg/g creat LAB CHEMISTRY METHOD 10/25/2024 1:11 PM [facility] Urine Urine specimen from urethra / Unknown Non-blood Collection / Unknown 10/25/2024 10:25 AM EST 10/25/2024 10:25 AM EST Michell CORNEJO LAB URINE ORDERABLES Final Result [facility] [address] [place] [address], * [facility] SCREENING DIGITAL (06/10/2024 4:22 PM EDT) Anatomical Region Laterality Modality Mammography 06/10/2024 10:4 9 AM EDT Narrative 06/10/2024 4:[address] [facility] Diagnostic Imaging Department [address] [place] [address] Patient: FAWAD FREDERICK./Age/Sex: 1965 - 58 - F Unit#: [id number] [facility]onic/Ordering Site: [facility] Ordering Physician: AUSTIN MARCANO MD [facility] Screening Digital - 06/10/24 - 1127 Report Status:Signed EXAM: [facility] Screening Digital EXAM DATE AND TIME: 06/10/2024 11:28 AM HISTORY: Screening. Right breast biopsies in 2012, pathology benign. Patient states significant weight loss since previous mammograms. COMPARISON: 01/23/15, 01/20/14 TECHNIQUE: Bilateral digital breast tomosynthesis was performed in the CC and MLO projections. Computer aided detection with iCAD iStoryTime 3D 3.1 was employed. TISSUE DENSITY: a. The breasts are almost entirely fatty. FINDINGS: Several small groups of microcalcifications are again seen bilaterally and have equivocally increased since the previous mammogram. Spot compression magnification views are recommended for further assessment. No suspicious masses or areas of architectural distortion are seen. Vascular calcification is present. The skin is unremarkable. IMPRESSION: Equivocal increase in bilateral microcalcifications, for which spot compression magnification views are recommended. The patient will be called back. BI-RADS: Category 0: Incomplete - Need Additional Imaging Evaluation RECOMMENDATION(S): 1: Special mammographic view(s) needed BILATERAL [facility] [address] [place] [address] Dictating Physician: JACKIE HODGE MD Electronically Signed by: JACKIE HODGE MD Dic Date/Time: 06/10/24 162 Sign date/Time: 06/10/24 162 Procedure Note Jackie Hodge MD - 06/30/2024 [facility] Diagnostic Imaging Department [address] [place] [address] Patient: SHAYYVANNESSAKye Colunga/Age/Sex: 1965 - 58 - F Unit#: [id number] Location/Status: [facility] CLI Mnemonic/Ordering Site: [facility] Ordering Physician: AUSTIN MARCANO MD [facility] Screening Digital - 06/10/24 - 1127 Report Status:Signed EXAM: [facility] Screening Digital EXAM DATE AND TIME: 06/10/2024 11:28 AM HISTORY: Screening. Right breast biopsies in 2013, pathology benign.Patient states significant weight loss since previous mammograms. COMPARISON: 01/23/15, 01/20/14 TECHNIQUE: Bilateral digital breast tomosynthesis was performed in the CCand MLO projections. Computer aided detection with Minded 3D 3.1was employed. TISSUE DENSITY: a. The breasts are almost entirely fatty. FINDINGS: Several small groups of microcalcifications are again seen bilaterally andhave equivocally increased since the previous mammogram. Spot compression magnification views are recommended for further assessment. No suspicious masses or areas of architectural distortion are seen.Vascular calcification is present. The skin is unremarkable. IMPRESSION: Equivocal increase in bilateral microcalcifications, for which spotcompression magnification views are recommended. The patient will be called back. BI-RADS: Category 0: Incomplete - Need Additional Imaging Evaluation RECOMMENDATION(S): 1: Special mammographic view(s) needed BILATERAL Mammogram performed at [facility] [place] [address] Dictating Physician: JACKIE HODGE MD Electronically Signed by: JACKIE HODGE MD Dic Date/Time: 06/10/24 1620 Sign date/Time: 06/10/24 1622 Result [facility] Austin Marcano MD IMG BI PROCEDURES Final Result * Diabetes Eye Exam (05/21/2024) [facility] Diabetes: Annual Retina Eye Exam Abstracted Result [facility] Provider HEALTH MAINTENANCE Final Result * Diabetes Foot Exam (05/04/2024) [facility] Diabetes: Annual Foot Exam Abstracted Result [facility] Provider HEALTH MAINTENANCE Final Result * Depression Screening (07/24/2023) [facility] Depression Screening Abstracted Result [facility] Chai ROLON HEALTH MAINTENANCE Final Result * Hepatitis C Screening (12/25/2016) [facility] Hepatitis C Screening Abstracted [facility] Provider HEALTH MAINTENANCE Final Result * Colonoscopy (04/14/2015) [facility] Colonoscopy Abstracted, No Interpretation Anatomical Region Laterality Modality Other us Historical Provider HEALTH MAINTENANCE Final Result from Last 3 Months or Most Recently Relevant to Health Maintenance Insurance [facility] [employer] Advance Directives * Full Code - Default (Latest Code Status on File) Date Activated Date Inactivated Comments 06/14/2025 3:45 PM 06/15/2025 6:24 PM This is orde r is used when code status has not been discussed with the patient, or code status is otherwise unknown/unconfirmed To update the patient's code status, place a code status order. Do not modify or discontinue any currently active code status orders. * Full Code - Default Date Activated Date Inactivated Comments 05/17/2025 8:24 PM 05/18/2025 3:40 PM This is order is used when code status has not been discussed with the patient, or code status is otherwise unknown/unconfirmed To update the patient's code status, place a code status order. Do not modify or discontinue any currently active code status orders. * Full Code - Default Date Activated Date Inactivated Comments 05/17/2025 11:33 AM 05/17/2025 8:24 PM This is order is used when code status has not been discussed with the patient, or code status is otherwise unknown/unconfirmed To update the patient's code status, place a code status order. Do not modify or discontinue any currently active code status orders. Care Teams Thermostat Maker Relationship Specialty Start Date End Date Austin Marcano MD [address] [place] [address] PCP - General Internal Medicine 06/04/21
== END 2025-09-02 14:42 | disposition home or self-care (01) ==
LOC: HO.NEURO 14:41
PROVIDERS: PCP Internal Medicine; Visit Provider Physician Assistant
DX: G56.03 Carpal tunnel syndrome, bilateral upper limbs (principal); G89.29 Other chronic pain; M79.641 Pain in right hand; M79.642 Pain in left hand
CPT/HCPCS: 95886; 95911

== ENCOUNTER → 2025-09-02 14:45 | Outpatient (BNV) | payer OTHER, SELFPAY | PROVIDERS: PCP Internal Medicine; Visit Provider Physical Medicine & Rehabilitation | DX: G56.23 Lesion of ulnar nerve, bilateral upper limbs (principal) | CPT/HCPCS: 95886; 95911 ==